=== PATIENT | female | born 1980 | race Caucasian/White ===

== ENCOUNTER 2017-12-26 09:45 | Emergency (ER) | payer MEDICAID, OTHER ==
[2017-12-26] MEDS ORDERED: RINGERS SOLUTION,LACTATED 1,000 ML IV ONE (10:13)
[2017-12-26] MEDS ORDERED: DIPHENHYDRAMINE HCL 50 MG/ML VIAL IV ONE (10:14)
[2017-12-26] MEDS ORDERED: METOCLOPRAMIDE HCL INJ/PF 10 MG/2 ML SDV IV ONE ×2 (10:14)
[2017-12-26] MEDS ORDERED: DEXAMETHASONE SOD PHOS INJ 10 MG/1 ML VIAL IV ONE (10:15)
--- NOTE | 2017-12-26 10:16 | ER Document Report ---
ED Medical Screen (RME) - General Chief Complaint: Headache Stated Complaint: DIZZINESS Time Seen by Provider: 12/26/17 10:13 Mode of Arrival: Ambulatory Information source: Patient Notes: This is a 37-year-old female with a history of migraines who is 18 weeks who presents to the emergency room with headache for the past 3 days. TRAVEL OUTSIDE OF THE [place] IN LAST 30 DAYS: No - Related Data Allergies/Adverse Reactions: cephalexin monohydrate [From Keflex] Allergy (Severe, Verified 12/26/17 09:49) analphylaxis Penicillins Allergy (Severe, Verified 12/26/17 09:49) Swelling, SOB, itching, body turns red Sulfa (Sulfonamide Antibiotics) Allergy (Mild, Verified 12/26/17 09:49) Hives Past Medical History - Social History Chew tobacco use (# tins/day): No Frequency of alcohol use: None Drug Abuse: None - Past Medical History Cardiac Medical History: Denies: Hx Coronary Artery Disease, Hx Heart Attack, Hx Hypertension Pulmonary Medical History: Reports: Hx Bronchitis, Hx Pneumonia - 2 yrs ago Denies: Hx Asthma, Hx COPD Neurological Medical History: Reports: Hx Migraine. Denies: Hx Cerebrovascular Accident, Hx Seizures Renal/ Medical History: Denies: Hx Peritoneal Dialysis GI Medical History: Musculoskeltal Medical History: Denies Hx Arthritis Infectious Medical History: Past Surgical History: Reports: Hx Cholecystectomy. Denies: Hx Pacemaker - Immunizations Immunizations up to date: Yes Hx Diphtheria, Pertussis, Tetanus Vaccination: Yes Physical Exam - Vital signs Vitals: Temp Pulse Resp BP Pulse Ox 98.7 F 88 16 130/82 H 98 12/26/17 09:54 12/26/17 09:54 12/26/17 09:54 12/26/17 09:54 12/26/17 09:54 Course - Vital Signs Vital signs: Temp Pulse Resp BP Pulse Ox 98.7 F 88 16 130/82 H 98 12/26/17 09:54 12/26/17 09:54 12/26/17 09:54 12/26/17 09:54 12/26/17 09:54 Doctor's Discharge - Discharge Referrals: NANNETTE GUSTAFSON PA-C [Primary Care Provider] - Follow up as needed
--- NOTE | 2017-12-26 11:16 | ER Document Report ---
ED Headache - General Chief Complaint: Headache Stated Complaint: DIZZINESS Time Seen by Provider: 12/26/17 10:13 Mode of Arrival: Ambulatory Notes: Patient is complaining of a migraine headache since Sunday. She has been diagnosed with migraine headaches and used to take Topamax, but she is now 18 weeks , G3, P1, A1, and that medication has been stopped. In place of it, her OB has been prescribing magnesium oxide which the patient does not think helps very much. This current headache is very similar to previous migraines that she has had before. She is nauseated but not vomiting. She is also gets diarrhea with her migraines and is having some with this headache. Has not had any fever. Her concern is that when she stands up she feels as if she might pass out, feeling very weak. PMH: PCOS, , NIDDM. TRAVEL OUTSIDE OF THE [place] IN LAST 30 DAYS: No - Related Data Allergies/Adverse Reactions: cephalexin monohydrate [From Keflex] Allergy (Severe, Verified 12/26/17 09:49) analphylaxis Penicillins Allergy (Severe, Verified 12/26/17 09:49) Swelling, SOB, itching, body turns red Sulfa (Sulfonamide Antibiotics) Allergy (Mild, Verified 12/26/17 09:49) Hives Past Medical History - General Information source: Patient - Social History Smoking Status: Never Smoker Chew tobacco use (# tins/day): No Frequency of alcohol use: None Drug Abuse: None Family History: Reviewed & Not Pertinent Patient has suicidal ideation: No Patient has homicidal ideation: No - Past Medical History Cardiac Medical History: Pulmonary Medical History: Reports: Hx Bronchitis, Hx Pneumonia - 2 yrs ago Neurological Medical History: Reports: Hx Migraine. Denies: Hx Cerebrovascular Accident, Hx Seizures Endocrine Medical History: Reports: Hx Diabetes Mellitus Type 2 GI Medical History: Musculoskeltal Medical History: Infectious Medical History: Past Surgical History: Reports: Hx Cholecystectomy - Immunizations Immunizations up to date: Yes Hx Diphtheria, Pertussis, Tetanus Vaccination: Yes Review of Systems - Review of Systems Notes: REVIEW OF SYSTEMS: CONSTITUTIONAL : Denies fever. Feeling weak and somewhat dizzy. EENT: Denies eye, ear, nose or mouth or throat pain or other symptoms. CARDIOVASCULAR: Denies chest pain. RESPIRATORY: Denies cough, chest congestion, or shortness of breath. GASTROINTESTINAL: Denies abdominal pain or nausea, vomiting, or diarrhea. GENITOURINARY: Denies difficulty or painful urinating, urinary frequency, blood in urine. MUSCULOSKELETAL: Denies back or neck pain. Denies joint pain or swelling. SKIN: Denies rash or skin lesions. NEUROLOGICAL: Denies LOC or altered mental status. Feeling lightheaded and dizzy when she stands up. Denies sensory loss or motor deficits. ALL OTHER SYSTEMS REVIEWED AND NEGATIVE. Physical Exam - Vital signs Vitals: Temp Pulse Resp BP Pulse Ox 98.7 F 88 16 130/82 H 98 12/26/17 09:54 12/26/17 09:54 12/26/17 09:54 12/26/17 09:54 12/26/17 09:54 Interpretation: Normal - Notes Notes: PHYSICAL EXAMINATION: GENERAL: Well-appearing, in no acute distress. IV fluid running. Vital signs were all essentially normal. Blood pressure 130/82 in triage. HEAD: Atraumatic, normocephalic. EYES: Pupils equal round and reactive to light, extraocular movements intact. ENT: oropharynx clear without exudates. Moist mucous membranes. NECK: Normal range of motion, supple. LUNGS: Breath sounds clear and equal bilaterally. HEART: Regular rate and rhythm without murmurs. ABDOMEN: Soft, nontender. No guarding or rebound. No masses. BACK: No tenderness throughout entire back. EXTREMITIES: Normal range of motion without pain. NEUROLOGICAL: Normal speech, normal gait. Normal sensory, motor, and reflex exams. Awake, alert, and oriented x3. PSYCH: Normal mood, normal affect. SKIN: Warm, dry, no rashes. Course - Re-evaluation Re-evalutation: 12/26/17 11:18 Patient says that she is already feeling some relief from her headache. Plan is to give the patient a liter of saline, check her urine, discharge her with Reglan for home use. 12/26/17 12:27 Patient says she is feeling much better. Says she is ready to go home. Urinalysis has moderate leukocyte esterase along with 12 WBCs and trace bacteria 4 clean-catch specimen. There are 5 squamous epithelial cells as well. I think this is all contamination from clean-catch specimen and I have ordered a urine culture and I will follow it to check and see if the patient has a UTI on culture. - Vital Signs Vital signs: Temp Pulse Resp BP Pulse Ox 98.1 F 100 16 125/74 96 12/26/17 12:27 12/26/17 12:27 12/26/17 09:54 12/26/17 12:27 12/26/17 12:27 - Laboratory Laboratory results interpreted by me: 12/26/17 10:00 Urine Glucose (UA) 150 H Ur Leukocyte Esterase MODERATE H Discharge - Discharge Clinical Impression: , Migraine headache Condition: Stable Disposition: HOME, SELF-CARE Additional Instructions: Migraine Headache The physician feels that your symptoms are due to a migraine attack. Migraines are caused by changes in the blood vessels of the head. Arteries go into spasm, often causing warning symptoms that a headache may begin soon. As the spasm goes away, the vessels dilate and throb, causing the pounding pain of a migraine headache. Migraines often cause nausea and vomiting. The treatment of headaches varies with severity and cause of pain. Not all headaches need pain shots -- in fact, there is evidence that using narcotics for headaches may make them worse in the long run. The physician will determine the therapy that's in your best interest for this particular headache. Medications are available that may prevent migraines, or stop them as they first occur. If one medication is not helpful, try another. If migraines are frequent, be patient -- follow the doctor's recommendations. Call the physician if you are worsening, or if new symptoms arise. REGLAN (METOCLOPRAMIDE): Reglan has been prescribed. This medicine affects the stomach and intestines. It can be used to treat nausea and vomiting, to prevent reflux of stomach acid up into the esophagus, or to increase the contractions of the stomach and intestines. It is often prescribed for esophagitis, and for paralysis of the stomach in diabetics. Reglan can cause either mild restlessness or drowsiness. You should contact the doctor at once if you become extremely restless, anxious, or cannot sleep, or if you develop uncontrollable motions of the lips, tongue, or jaw. Do not take alcohol with this medicine. Do not drive or operate machinery until you have been taking this medicine long enough to know how it affects you. Call the doctor if you develop abdominal pains, lightheadedness, black stool, or blood in the stool or vomitus. USE OF DIPHENHYDRAMINE: Diphenhydramine (Benadryl) is an antihistamine and has been recommended to help treat your headache and to prevent side effects of other medications used to treat headaches. The medication can be repeated four times daily. Age Elixir (12.5 mg/tsp) 25 mg pill adult 1-2 tabs Antihistamines may cause drowsiness, especially with the first dose. Do not operate machinery or drive while under the effects of the medication. Do not combine the medication with alcohol, or with any other medication without talking to your doctor. FOLLOW-UP CARE: If you have been referred to a physician for follow-up care, call the physician s office for an appointment as you were instructed or within the next two days. If you experience worsening or a significant change in your symptoms, notify the physician immediately or return to the Emergency Department at any time for re-evaluation. Prescriptions: Metoclopramide HCl [Reglan 10 mg Tablet] 1 - 2 tab PO ASDIR PRN #30 tablet PRN Reason: Forms: Parent Work Note Referrals: NANNETTE GUSTAFSON PA-C [NO LOCAL MD] - Follow up as needed
[2017-12-26 11:31] LABS: APPEARANCE,URINE SLIGHTLY-CLOUDY; BILIRUBIN,URINE NEGATIVE (NEGATIVE); CALCIUM OXALATE CRYSTALS,URINE TOO NUMEROUS TO CNT /HPF; COLOR,URINE YELLOW; GLUCOSE, URINE 150 mg/dL (NEGATIVE); KETONES,URINE NEGATIVE (NEGATIVE); LEUKOCYTE ESTERASE,URINE MODERATE (NEGATIVE); NITRITE,URINE NEGATIVE (NEGATIVE); PROTEIN,URINE NEGATIVE (NEGATIVE); URINE SPECIFIC GRAVITY 1.026; UROBILINOGEN,URINE NEGATIVE mg/dL (<2.0)
[2017-12-26 12:34] VITALS: BP 125/74
== END 2017-12-26 13:05 | disposition home or self-care (01) ==
LOC: ER 09:45
DX: O26.92 Pregnancy related conditions, unspecified, second trimester (principal); G43.909 Migraine, unspecified, not intractable, without status migrainosus; R42 Dizziness and giddiness; O24.112 Pre-existing type 2 diabetes mellitus, in pregnancy, second trimester; Z3A.18 18 weeks gestation of pregnancy; Z88.0 Allergy status to penicillin; Z88.2 Allergy status to sulfonamides; Z90.49 Acquired absence of other specified parts of digestive tract
CPT/HCPCS: 99283; 96361; 96374; 96375; 87086; 81001; J1200; J2765; J7120; J1100

== ENCOUNTER 2018-02-28 11:44 | Outpatient (CLI) | payer OTHER ==
[2018-02-28 13:42] LABS: URINE AMPHETAMINES SCREEN NEGATIVE; URINE BARBITURATES SCREEN NEGATIVE; URINE BENZODIAZEPINES SCREEN NEGATIVE; URINE COCAINE SCREEN NEGATIVE; URINE MARIJUANA (THC) SCREEN NEGATIVE; URINE METHADONE SCREEN NEGATIVE; URINE PHENCYCLIDINE SCREEN NEGATIVE
[2018-02-28 13:57] LABS: APPEARANCE,URINE SLIGHTLY-CLOUDY; BILIRUBIN,URINE NEGATIVE (NEGATIVE); COLOR,URINE YELLOW; GLUCOSE, URINE >=500 mg/dL (NEGATIVE); KETONES,URINE 20 mg/dL (NEGATIVE); LEUKOCYTE ESTERASE,URINE MODERATE (NEGATIVE); NITRITE,URINE NEGATIVE (NEGATIVE); PROTEIN,URINE NEGATIVE (NEGATIVE); URINE SPECIFIC GRAVITY 1.017; UROBILINOGEN,URINE NEGATIVE mg/dL (<2.0)
--- NOTE | 2018-02-28 14:22 | RADIOLOGY REPORT (SQ) ---
EXAM DESCRIPTION: U/S OB LIMITED COMPLETED DATE/TIME: 02/28/2018 2:05 pm REASON FOR STUDY: cervical length 27.2 vaginal bleeding COMPARISON: None. TECHNIQUE: Limited transabdominal grayscale ultrasound for evaluation of specific requested obstetri ty parameters. LIMITATIONS: None. FINDINGS: CERVICAL LENGTH: 4.8 cm Closed. DINA: Largest pocket 4.1 cm . FHR: 140 beats per minute. PRESENTATION: Breech. OTHER: No other significant findings. IMPRESSION: LIMITED OBSTETRICAL ULTRASOUND WITH MEASURED PARAMETERS DELINEATED ABOVE. Trimester of : Second trimester - 13 weeks 1 day to 27 weeks 6 days. TECHNICAL DOCUMENTATION: JOB ID: [id number] [employer]- All Rights Reserved Reading location - IP/workstation name: [email or web address]
== END 2018-02-28 14:11 | disposition home or self-care (01) ==
LOC: LC 11:44
PROVIDERS: ATTEND Student in an Organized Health Care Education/Training Program
PROC: 4A1HXCZ Monitoring of Products of Conception, Cardiac Rate, External Approach (ICD-10-PCS; principal; 2018-02-28)
DX: O47.02 False labor before 37 completed weeks of gestation, second trimester (principal); Z3A.27 27 weeks gestation of pregnancy
CPT/HCPCS: 76815; 80307; 81001

== ENCOUNTER → 2018-04-25 | Outpatient (CLI) | payer OTHER ==
--- NOTE | 2018-04-25 15:07 | Non Stress Test Report ---
Non Stress Test Datetime Report Generated by CPN: 04/25/2018 15:07 DEMOGRAPHIC EGA NST: 35.2 EGA NST: 33.2 INDICATION Indication for Study: Diabetes Mellitus Indication for Study: Ordered by Provider Indication for Study: Ordered by Provider VITAL SIGNS Temperature - NST: 98.1 MONITORING Monitor Explained: Monitor Explained; Test Explained; Patient Verbalized Understanding Monitor Explained: Monitor Explained; Test Explained; Patient Verbalized Understanding Monitor Explained: Monitor Explained; Test Explained; Patient Verbalized Understanding Time on Monitor: 04/25/2018 14:40 Time on Monitor: 04/11/2018 14:29 Time off Monitor: 04/25/2018 15:05 Time off Monitor: 04/11/2018 15:01 NST Duration: 25 NST Duration: 32 NST INTERVENTIONS NST Interventions: PO Hydration; Reposition Patient NST Interventions: None NST Interventions: PO Hydration; Reposition Patient Physician Notified NST: Dr Palomo BABY A: [id number] BABY A Movement : Present Movement : Present Contraction Frequency : denies Contraction Frequency : none FHR Baseline : 135 FHR Baseline : 145 Accelerations : 15X15 Accelerations : 15X15 Decelerations : None Decelerations : None Variability : Moderate 6-25bpm Variability : Minimal - Undetectable to <=5bpm NST Review: Meets Criteria for Reactive NST NST Review: Meets Criteria for Reactive NST NST Review and Verified By : Josh Wang RN NST Review and Verified By : Deb Sellers RNC NST Results: Reactive NST Results: Reactive NST REPORT Report Trigger: Send Report
== END ==
LOC: LC 14:28
PROVIDERS: ATTEND Obstetrics & Gynecology Gynecology
PROC: 4A1HXCZ Monitoring of Products of Conception, Cardiac Rate, External Approach (ICD-10-PCS; principal; 2018-04-25)
DX: O24.913 Unspecified diabetes mellitus in pregnancy, third trimester (principal); O09.523 Supervision of elderly multigravida, third trimester; Z3A.35 35 weeks gestation of pregnancy
CPT/HCPCS: 59025

== ENCOUNTER 2018-05-03 23:24 | Inpatient (IN) | payer OTHER ==
[2018-05-03] MEDS ORDERED: RINGERS SOLUTION,LACTATED 1,000 ML IV PRN (23:31)
[2018-05-03] MEDS ORDERED: RINGERS SOLUTION,LACTATED 1,000 ML IV ONE (23:31)
[2018-05-03] MEDS ORDERED: CLINDAMYCIN 900 MG/D5W RTU 900 MG/50 ML RTUPB IV ONE ×2 (23:45→23:58)
--- NOTE | 2018-05-03 23:46 | Admission Physical ---
Datetime Report Generated by CPN: 05/03/2018 23:46 CURRENT ADMISSION Chief Complaint: Uterine Contractions; Suspected Ruptured Membranes Indication for Induction: Not Applicable Admit Impression : , Intrauterine ; Active Labor; Ruptured Membranes; Repeat Section Admit Plan: Admit to Unit; Initiate Section Protocol ALLERGIES Medication Allergies: Yes Medication Allergies: cephalexin monohydrate/SV/analphylaxis (04/25/2018); Penicillins/SV/Swelling, SOB, (04/25/2018); Sulfa (Sulfonamide Antibiotics)/MT/Hives (04/25/2018) Latex: Latex Allergies Food Allergies: N/A Environmental Allergies: Seasonal OBSTETRICAL HISTORY EDC: 05/28/2018 00:00 : 3 Para: 1 Term: 1 : 0 SAB: 1 IAB: 0 Ectopic: 0 Livin Cesareans: 1 VBACs: 0 Multiple Births: 0 Gestational Diabetes: No Rh Sensitization: No Incompetent Cervix: No KARO: No Infertility: Yes ART Treatment: Yes Uterine Anomaly: No IUGR: No Hx Previous C/S: Yes Macrosomia: No Hx Loss/Stillborn: No PIH: No Hx : No Placenta Previa/Abruption: No Depression/PP Depression: No PTL/PROM: No Post Hemorrhage: Yes Current Procedures: Ultrasound; NST Obstetrical History Comments: G2- Seen by Dr. Montenegro for assisted reproductive tx, C/S 2014, pt states that she lost a lot of blood during C/S. SEE RECORDS Alcohol: No Marijuana : No Cocaine: No Other Illicit Drugs: No Cigarettes: Never Smoker. [id number] MEDICAL HISTORY Diabetes: Yes Diabetes Type: Type II - NIDDM Blood Transfusion: No Pulmonary Disease (Asthma, TB): No Breast Disease: No Hypertension: No Business Supervisor Surgery: Yes Heart Disease: No Hosp/Surgery: Yes Autoimmune Disorder: No Anesthetic Complications: No Kidney Disease: No Abnormal Pap Smear: No Neuro/Epilepsy: No Psychiatric Disorders: No Other Medical Diseases: No Hepatitis/Liver Disease: No Significant Family History: No Varicosities/Phlebitis: No Trauma/Violence : No Thyroid Dysfunction: No Medical History Comments: 4-5 D_C, C/S 2014. Dr. Montenegor in [place] for assisted reproductive treatment 2012. INFECTIOUS HISTORY Gonorrhea: No Genital Herpes: No Chlamydia: No Tuberculosis: No Syphilis: No Hepatitis: No HIV/AIDS Exposure: No Rash or Viral Illness: No HPV: No PHYSICAL EXAM General: Normal HEENT: Normal Neurologic: Normal Thyroid: Deferred Heart: Normal Lungs: Normal Breast: Deferred Back: Normal Abdomen: Normal Genitourinary Exam: Normal Extremities: Normal DTRs: Normal Pelvic Type: Adequate Vital Signs: Reviewed VAGINAL EXAM Dilatation: 1 Effacement: 60 Station: -3 Contraction Comments: q 2-3 MEMBRANES Membranes: Ruptured Amniotic Fluid Color: Clear FETUS A EGA: 36.3 Monitoring: External US FHR- Baseline: 155 Variability: Moderate 6-25bpm Accelerations: 15X15 Decelerations: None Presentation: Vertex Admit Comment: 38yo at 36+3ega presents with grossly ruptured membranes with copious fluid noted. Clear fluid and ROM noted at approx 2300. Pt reports that ctx began shortly after ROM. H/o section for distress per patient. Type II DM with Hb A1c at 9 early preg. Declines insulin for management - on Glyburide 10mg daily and metformin 500mg QHS. Undesired future fertility and desires BTL. Poor dentition. GBS unknown. CHTN/AMA. Admit to L_D for repeat section with BTL. PLANS FOR LABOR AND DELIVERY Labor and Delivery: None Pain Management: Spinal Other Pain Management Plans: Prior C/S Feeding Preference: Formula Benefit of Breast Feed Discussed: Yes Circumcision: Yes INFORMED CONSENT Informed Consent Obtained: Section Delivery; Sterilization; Risks, Benefits and Alternatives Discussed Signature: with User ID: [email or web address]
[2018-05-03 23:53] LABS: ABSOLUTE EOSINOPHILS # (AUTO) 0.2 10^3/uL (0.0-0.6); ABSOLUTE MONOCYTES (AUTO) 0.7 10^3/uL (0.1-1.4); ABSOLUTE NEUT (AUTO) 5.1 10^3/uL (1.7-8.2); BASOPHILS % (AUTO) 0.5 % (0-2); HEMOGLOBIN 11.3 g/dL (12.0-15.5); LYMPHOCYTES % (AUTO) 24.9 % (13-45); MEAN CORPUSCULAR HEMOGLOBIN 25.9 pg (27.0-33.4); MEAN CORPUSCULAR HGB CONC 33.3 g/dL (32.0-36.0); MEAN CORPUSCULAR VOLUME 78 fl (80-97); MONOCYTES % (AUTO) 8.8 % (3-13); PLATELET COUNT 345 10^3/uL (150-450); RED BLOOD COUNT 4.37 10^6/uL (3.72-5.28); RED CELL DISTRIBUTION WIDTH 14.7 % (11.5-14.0); SEGMENTED NEUTROPHILS % (AUTO) 63.8 % (42-78); TOTAL CELLS COUNTED % (AUTO) 100 %; WHITE BLOOD COUNT 8.1 10^3/uL (4.0-10.5)
[2018-05-03] MEDS ORDERED: CITRIC ACID/SODIUM CITRATE ORAL SOLN 15 ML UDCUP ONE (23:58)
[2018-05-03] MEDS ORDERED: OXYTOCIN 10 UNIT/ML VIAL ONE (23:59)
[2018-05-03] MEDS ORDERED: MISOPROSTOL 0.2 MG TABLET ONE (23:59)
[2018-05-04] MEDS ORDERED: METHYLERGONOVINE MALEATE INJ/PF 0.2 MG/1 ML AMPULE ONE
[2018-05-04] MEDS ORDERED: OXYTOCIN/NORMAL SALINE 20 UNIT/1,000 ML RTUINJ ONE
[2018-05-04] MEDS ORDERED: ONDANSETRON HCL INJ/PF 4 MG/2 ML SDV ONE (00:29)
[2018-05-04] MEDS ORDERED: EPHEDRINE SULFATE INJ 50 MG/1 ML AMPULE ONE (00:29)
[2018-05-04] MEDS ORDERED: BUPIVACAINE HCL/DEX-WATER/PF 15 MG/2 ML AMPULE ONE (00:29)
[2018-05-04] MEDS ORDERED: SIMETHICONE 80 MG TAB.CHEW PO PRN (00:30)
[2018-05-04] MEDS ORDERED: OXYTOCIN 10 UNIT/ML VIAL ONE ×2 (00:30→00:59)
[2018-05-04] MEDS ORDERED: MIDAZOLAM 2 MG/2 ML INJ ONE (00:30)
[2018-05-04] MEDS ORDERED: OXYCODONE-ACETAMINOPHEN 5-325 MG TABLET PO PRN (00:30)
[2018-05-04] MEDS ORDERED: PROMETHAZINE HCL INJ 25 MG/1 ML VIAL IV PRN (00:30)
[2018-05-04] MEDS ORDERED: OXYTOCIN/NORMAL SALINE 20 UNIT/1,000 ML RTUINJ IV PRN (00:30)
[2018-05-04] MEDS ORDERED: DIPH/PERTUSS(ACELL)/TETANUS VAC/PF 0.5 ML SYR (>=10YO) IM PRN (00:30)
[2018-05-04] MEDS ORDERED: FENTANYL CITRATE INJ/PF 100 MCG/2 ML AMPUL ONE ×2 (00:30→03:46)
[2018-05-04] MEDS ORDERED: ACETAMINOPHEN 1,000 MG/100 ML RTUPB IV PRN (00:30)
[2018-05-04] MEDS ORDERED: ACETAMINOPHEN 325 MG TABLET PO PRN (00:30)
[2018-05-04] MEDS ORDERED: MEASLES,MUMPS&RUBELLA VACC/PF 0.5 ML VIAL SUBCUT PRN (00:30)
--- NOTE | 2018-05-04 00:30 | Brief Operative Note ---
BRIEF OPERATIVE REPORT DATE OF SURGERY: 05/04/18 TIME OF SURGERY: 00:30 PREOPERATIVE DIAGNOSIS: AMA, possible Cholestasis of , PPROM, H/o section, Undesired fertility, CHTN, Type II DM, keloid scar POSTOPERATIVE DIAGNOSIS: ROSHAN - delivered SURGEON: CARLOS MEJIA FINDINGS: Filschie clips x 2 placed on bilateral fallopian tubes. Normal uterus , normal bilateral tubes/ovaries. VMI delivered at 0112. Weight 3613g, Apgars 5/7/8. IVF 1700ml, UOP 200ml COMPLICATIONS: none ESTIMATED BLOOD LOSS: 695ml QBL TISSUE REMOVED OR ALTERED: placenta and cord not sent to pathology TECHNICAL PROCEDURE: Repeat section, BTL, Scar revision
[2018-05-04] MEDS ORDERED: KETOROLAC TROMETHAMINE INJ/PF 30 MG/1 ML SDV IV ONE (01:00)
--- NOTE | 2018-05-04 02:57 | Warning Signs in Babies ---
VOD Warning Signs Datetime Report Generated by [facility]: 05/04/2018 02:56 VOD#608 -Warning Signs in Babies: Needs to be viewed. (02/28/2018 11:48:Sharon Bills RN)
[2018-05-04] MEDS ORDERED: KETOROLAC TROMETHAMINE INJ/PF 30 MG/1 ML SDV ONE (03:28)
[2018-05-04 04:00] LABS: URINE AMPHETAMINES SCREEN NEGATIVE; URINE BARBITURATES SCREEN NEGATIVE; URINE BENZODIAZEPINES SCREEN NEGATIVE; URINE COCAINE SCREEN NEGATIVE; URINE MARIJUANA (THC) SCREEN NEGATIVE; URINE METHADONE SCREEN NEGATIVE; URINE PHENCYCLIDINE SCREEN NEGATIVE
[2018-05-04] MEDS ORDERED: BUPROPION HCL 100 MG TABLET PO ONE (04:38)
--- NOTE | 2018-05-04 04:45 | Operative Report ---
Operative Report DATE OF SURGERY: 05/04/18 PREOPERATIVE DIAGNOSIS: AMA, possible Cholestasis of , PPROM, H/o section, Undesired fertility, CHTN, Type II DM, keloid scar POSTOPERATIVE DIAGNOSIS: ROSHAN - delivered OPERATION: Repeat section, BTL, Scar revision SURGEON: CARLOS MEJIA ANESTHESIA: Spinal TISSUE REMOVED OR ALTERED: placenta and cord not sent to pathology COMPLICATIONS: None ESTIMATED BLOOD LOSS: 695ml QBL INTRAOPERATIVE FINDINGS: Filschie clips x 2 placed on bilateral fallopian tubes. Normal uterus, normal bilateral tubes/ovaries. VMI delivered at 0112. Weight 3613g, Apgars 5/7/8. IVF 1700ml, UOP 200ml PROCEDURE: Anesthesia provider: [Be Ramirez CRNA, MD] Urine output: [200ml] IV fluids: [1700ml] Indications: [38yo at 36+3ega presents for PPROM and early active labor with a history of a prior section. She desires repeat section. She has completed childbearing and desires tubal sterilization. The risks, benefits, alternatives were reviewed and she desiers to proceed with planned procedure.] Procedure: The patient was taken to the operating room where spinal anesthesia was obtained and found to be adequate. She was then prepped and draped in the normal sterile fashion and placed in the dorsal supine position with a leftward tilt. The prior Pfannenstiel skin incision was then excised and this incision carried through to the underlying layers of the fascia with the scalpel. The fascia was incised in the midline and the incision extended laterally with the Godwin scissors. The superior aspect of the fascial incision was then grasped with Sammy clamps elevated and the underlying rectus muscles dissected off [ bluntly]. Attention was then turned to the inferior aspect of the fascial incision which in a similar fashion was grasped, tented up with Sammy clamps, and the rectus muscles dissected off [bluntly]. The rectus muscles were then in the midline and the peritoneum at the amount identified and entered [bluntly]. The peritoneal incision was then extended superiorly and inferiorly with good visualization of the bladder. The bladder blade was inserted and the vesicouterine peritoneum identified grasped with Montenegrin pickups and entered sharply with the Metzenbaum scissors. This incision was then extended laterally with the Metzenbaum scissors and a bladder flap created digitally. The bladder blade was then reinserted and the lower uterine segment incised in a transverse fashion with the scalpel. The uterine incision was then extended bluntly. The bladder blade was removed and the infant's head was delivered from cephalic presentation atraumatically. The nose and mouth were suctioned and the cord doubly clamped and cut. And the was handed off to waiting pediatricians. The placenta was then delivered spontaneously and the uterus exteriorized and cleared of all clots and debris. The uterine incision was then repaired with 1- 0 Vicryl in a running locked fashion. A second layer of the same suture was used to obtain hemostasis via imbrication of the initial layer. The bladder flap was then repaired with 3-0 chromic in a running fashion. The uterus was returned to the patient's abdomen and Interceed was placed overlying the uterine incision to prevent adhesions. The gutters were cleared of all clots and debris. All operative sites were noted to be hemostatic surgicel was placed for additional hemostasis. The fascia was reapproximated with 0 Vicryl in a running fashion from each lateral edge to the midline. The skin was closed with 3-0 Monocryl in a running subcuticular fashion with overlying Dermabond for additional dressing as well as wound closure. The patient tolerated the procedure well. Sponge lap needle and instrument counts are correct times 2. Clindamycin 900mg were given prior to skin incision. The patient was taken to the recovery area awake and in stable condition.
[2018-05-04] MEDS: OXYCODONE-ACETAMINOPHEN 5-325 MG TABLET PO PRN ×4 (05:11→22:46)
--- NOTE | 2018-05-04 05:19 | Delivery Summary ---
Del Sum A-C Datetime Report Generated by CPN: 05/04/2018 05:18 DELIVERY PERSONNEL DELIVERY PERSONNEL: [id number] Delivery Doctor:: Vesna Lynn MD Anesthesiologist:: Selena Lr MD HOUSE NURSE:: Enzo Ashley CRNA Labor and Delivery Nurse:: Jodi Whelan RN Quality Rn:: chaparrita staples rn Neonatal Nurse Practitioner:: BING Lubin Nursery Nurse:: Terra England RN Medical Lab Scientist/LABORATORY SUPERVISOR: [facility] Medical Lab Scientist/LABORATORY SUPERVISOR: kerwin medellin, st MATERNAL INFORMATION Delivery Anesthesia: Spinal Medications After Delivery: Pitocin Drip 20 Units/1000ml NSS Maternal Complications: Premature Rupture of Membranes; Other Complication Details: diabetes LABOR SUMMARY EDC: 05/28/2018 00:00 No. Babies in Womb: 1 Attempted: No Labor Anesthesia: None LABOR INFORMATION Reason for Induction: Not Applicable Onset of Labor: 05/03/2018 23:00 Oxytocin: N/A Group B Beta Strep: unknown Antibiotics # of Doses: 1 Antibiotics Time of Last Dose: 0017 Name of Antibiotic Given: Clindamycin Steroids Given: None Reason Steroids Not Administered: Not Applicable MEMBRANES Membranes Rupture Method: Spontaneous Rupture of Membranes: 05/03/2018 22:45 Length of Rupture (hr): 2.45 Amniotic Fluid Color: Clear Amniotic Fluid Amount: Moderate Amniotic Fluid Odor: Normal STAGES OF LABOR Stage 3 hr: 0 Stage 3 min: 1 Total Time in Labor hr: 2 Total Time in Labor min: 13 VAGINAL DELIVERY Episiotomy: None Laceration #1: None Laceration Extension #1: N/A Laceration Repair: Not Applicable Sponge Count Correct: N/A CSECTION DELIVERY Primary Indication: Repeat Elective CSection Urgency: Non-Scheduled CSection Incidence: Repeat Labor: No Labor Elective: Nonelective CSection Incision: Lower Uterine Transverse BABY A INFORMATION Infant Delivery Date/Time: 05/04/2018 01:12 Method of Delivery: Born in Route : No : N/A Forceps: N/A Vacuum Extraction: N/A Shoulder Dystocia : No PRESENTATION/POSITION BABY A Presentation: Cephalic Cephalic Presentation: Vertex Vertex Position: Right Occipital Anterior Breech Presentation: N/A PLACENTA INFORMATION BABY A Placenta Delivery Time : 05/04/2018 01:13 Placenta Method of Delivery: Manual Removal Placenta Status: Delivered SCORES BABY A Resuscitation Effort 1 min: Tactile Stimulation INFORMATION BABY A Gestational Age at Delivery: 36.4 Gestational Status: Late - 34- 36.6 Weeks Infant Outcome : Liveborn Infant Condition : Stable Sex: Male IDENTIFICATION BABY A Verification Date/Time: 05/04/2018 01:15 ID Band Number: [id number] Mother's Name Verified: Yes Infant RN Verifying Infant: zari staples Additional Verifying Personnel: zari normdon WEIGHT/LENGTH BABY A Birthweight (gm): 3613 Weight (lb): 7 Weight (oz): 15 Infant Length (in): 20.00 Infant Length (cm): 50.80 CORD INFORMATION BABY A No. Cord Vessels: 3 Nuchal Cord : Around Neck x1, Loose Cord Blood Taken: Yes-For Eval (Mom's Blood Type - or O+) Suction: Mouth; Nose ASSESSMENT BABY A Complications: None Skin to Skin: No Exhibition Carver/ALS Called : No Infant Care By: OIL LEASE OPERATOR Carbone and RN [place] Transferred To: NICU BABY B INFORMATION : N/A
[2018-05-04] MEDS ORDERED: KETOROLAC TROMETHAMINE INJ/PF 30 MG/1 ML SDV IV SCH (06:00)
[2018-05-04] MEDS ORDERED: CLINDAMYCIN 900 MG/D5W RTU 900 MG/50 ML RTUPB IV SCH (06:00)
[2018-05-04] MEDS: HYDROMORPHONE HCL INJ/PF 2 MG/ML AMPULE IV PRN ×2 (06:22→23:40)
[2018-05-04 06:44] LABS: HEMATOCRIT 33.3 % (36.0-47.0); MEAN CORPUSCULAR HEMOGLOBIN 25.6 pg (27.0-33.4); MEAN CORPUSCULAR HGB CONC 33.1 g/dL (32.0-36.0); MEAN CORPUSCULAR VOLUME 77 fl (80-97); PLATELET COUNT 304 10^3/uL (150-450); RED CELL DISTRIBUTION WIDTH 14.5 % (11.5-14.0); WHITE BLOOD COUNT 15.3 10^3/uL (4.0-10.5)
[2018-05-04 06:55] LABS: ALANINE AMINOTRANSFERASE 23 U/L (9-52); ALBUMIN 2.6 g/dL (3.5-5.0); ALKALINE PHOSPHATASE 130 U/L (38-126); ANION GAP 6 (5-19); ASPARTATE AMINO TRANSFERASE 14 U/L (14-36); BILIRUBIN,TOTAL 0.3 mg/dL (0.2-1.3); BLOOD UREA NITROGEN 6 mg/dL (7-20); CALCIUM 8.8 mg/dL (8.4-10.2); CARBON DIOXIDE 17 mmol/L (22-30); CHLORIDE 113 mmol/L (98-107); GLUCOSE 142 mg/dL (75-110); POTASSIUM 4.2 mmol/L (3.6-5.0); SODIUM 136.4 mmol/L (137-145); TOTAL PROTEIN 5.3 g/dL (6.3-8.2)
[2018-05-04] MEDS: PRENATAL VITAMIN W DHA CAPSULE PO SCH (09:55)
[2018-05-04] MEDS: DOCUSATE SODIUM 100 MG CAPSULE PO SCH ×2 (09:55→17:55)
--- NOTE | 2018-05-04 10:16 | PDOC PROGRESS REPORT ---
Subjective-OB Progress Note for:: 05/04/18 Subjective: Post Op Day 0 repeat c-seciton due to SROM at 36 wks, Hx of Type 2 DM with poor control. Pt doing well, no complaints, O+, Rubella NI Physical Exam (OB) Vital Signs: Temp Pulse Resp BP Pulse Ox 98.0 F 78 18 113/74 100 05/04/18 08:11 05/04/18 08:11 05/04/18 08:11 05/04/18 08:11 05/04/18 08:11 Intake & Output 05/03/18 05/04/18 05/05/18 06:59 06:59 06:59 Output Total 900 Balance -900 Weight 82.6 kg - General General Appearance: Appears well, Alert - Incision: Well Approximated Closure Type: Steri-Strips - Lochia Lochia Amount: Scant < 10 ml Lochia Color: Rubra/Red - Abdomen Description: Soft, Flat Hernia Present: No Fundal Description: Firm, Midline Fundal Height: u/u - u/2 - HEENT Head: Normocephalic - Respiratory Respiratory Status: No respiratory distress Chest Status: Nontender Breath sounds: Clear Chest Palpation: Normal - Cardiovascular Rhythm: Regular Heart Sounds: Normal auscultation - Abdominal Inspection: Normal Distension: No distension Tenderness: Nontender - Genitourinary Genitourinary Note: blanca cath in place, clear demi urine - Extremities Upper extremity: Normal inspection Lower extremities: Normal inspection - Neurological Cognition: Normal Orientation: AAOx4 - Psychological Associated symptoms: Normal affect, Normal mood - Skin Skin Temperature: Warm Skin Moisture: Dry Objective-Diagnostic Laboratory: 05/04/18 06:33 05/04/18 06:33 05/03/18 05/03/18 05/04/18 23:42 23:42 06:33 WBC 8.1 15.3 H RBC 4.37 4.30 Hgb 11.3 L 11.0 L Hct 34.0 L 33.3 L MCV 78 L 77 L MCH 25.9 L 25.6 L MCHC 33.3 33.1 RDW 14.7 H 14.5 H Plt Count 345 304 Seg Neutrophils % 63.8 Lymphocytes % 24.9 Monocytes % 8.8 Eosinophils % 2.0 Basophils % 0.5 Absolute Neutrophils 5.1 Absolute Lymphocytes 2.0 Absolute Monocytes 0.7 Absolute Eosinophils 0.2 Absolute Basophils 0.0 Sodium Potassium Chloride Carbon Dioxide Anion Gap BUN Creatinine Est GFR ( Amer) Est GFR (Non-Af Amer) Glucose Calcium Total Bilirubin AST ALT Alkaline Phosphatase Total Protein Albumin Blood Type O POSITIVE Antibody Screen NEGATIVE 05/04/18 06:33 WBC RBC Hgb Hct MCV MCH MCHC RDW Plt Count Seg Neutrophils % Lymphocytes % Monocytes % Eosinophils % Basophils % Absolute Neutrophils Absolute Lymphocytes Absolute Monocytes Absolute Eosinophils Absolute Basophils Sodium 136.4 L Potassium 4.2 Chloride 113 H Carbon Dioxide 17 L Anion Gap 6 BUN 6 L Creatinine 0.38 L Est GFR ( Amer) > 60 Est GFR (Non-Af Amer) > 60 Glucose 142 H Calcium 8.8 Total Bilirubin 0.3 AST 14 ALT 23 Alkaline Phosphatase 130 H Total Protein 5.3 L Albumin 2.6 L Blood Type Antibody Screen Assessment and Plan(PN) - Assessment and Plan (1) Advanced maternal age (AMA) in Is this a current diagnosis for this admission?: Yes (3) History of delivery Is this a current diagnosis for this admission?: Yes (4) premature rupture of membranes Qualifiers: PROM onset of labor timing: onset of labor within 24 hours of rupture Qualified Code(s): O42.019 - premature rupture of membranes, onset of labor within 24 hours of rupture, unspecified trimester Is this a current diagnosis for this admission?: Yes (5) S/P repeat low transverse Is this a current diagnosis for this admission?: Yes (6) Sterilization Is this a current diagnosis for this admission?: Yes (7) Type 2 diabetes mellitus affecting in third trimester, antepartum Is this a current diagnosis for this admission?: Yes - Time Spent with Patient Time with patient: Less than 15 minutes Medications reviewed and adjusted accordingly: Yes - Disposition Anticipated Discharge: Home Within: within 48 hours
[2018-05-04] MEDS: KETOROLAC TROMETHAMINE INJ/PF 30 MG/1 ML SDV IV SCH ×2 (14:16→23:35)
[2018-05-04] MEDS: IBUPROFEN 800 MG TABLET PO SCH ×3 (14:17→23:39)
[2018-05-05] MEDS: IBUPROFEN 800 MG TABLET PO SCH ×3 (05:45→17:07)
--- NOTE | 2018-05-05 10:07 | PDOC PROGRESS REPORT ---
Subjective-OB Progress Note for:: 05/05/18 Subjective: Post Op Day #1,, Rpt c-seciton with BTL, Type 2 DM and CHTN, SROM at 36 wks, Baby in the NICU, Physical Exam (OB) Vital Signs: Temp Pulse Resp BP Pulse Ox 98.0 F 87 18 113/72 98 05/05/18 07:38 05/05/18 07:38 05/05/18 07:38 05/05/18 07:38 05/05/18 07:38 Intake & Output 05/04/18 05/05/18 05/06/18 06:59 06:59 06:59 Output Total 900 450 Balance -900 -450 Weight 82.6 kg - General General Appearance: Appears well, Alert In distress: None - Dressing Removed: No Incision: Well Approximated Closure Type: Steri-Strips - Bilateral Tubal Ligation Dressing Removed: No - Lochia Lochia Amount: Scant < 10 ml Lochia Color: Rubra/Red - Abdomen Description: Tender, Soft Hernia Present: No Fundal Description: Firm, Midline Fundal Height: u/u - u/2 - Respiratory Respiratory Status: No respiratory distress - Abdominal Inspection: Normal Distension: No distension Tenderness: Nontender - Genitourinary Genitourinary Note: voiding - Extremities Upper extremity: Normal inspection Lower extremities: Other - trace edema - Neurological Cognition: Normal Orientation: AAOx4 - Psychological Associated symptoms: Normal affect, Normal mood - Skin Skin Temperature: Warm Skin Moisture: Dry Skin Color: Normal Objective-Diagnostic Laboratory: 05/04/18 06:33 05/04/18 06:33 Assessment and Plan(PN) - Assessment and Plan (1) Advanced maternal age (AMA) in Is this a current diagnosis for this admission?: Yes (2) Chronic hypertension affecting Is this a current diagnosis for this admission?: Yes (3) History of delivery Is this a current diagnosis for this admission?: Yes (4) premature rupture of membranes Qualifiers: PROM onset of labor timing: onset of labor within 24 hours of rupture Qualified Code(s): O42.019 - premature rupture of membranes, onset of labor within 24 hours of rupture, unspecified trimester Is this a current diagnosis for this admission?: Yes (5) S/P repeat low transverse Is this a current diagnosis for this admission?: Yes (6) Sterilization Is this a current diagnosis for this admission?: Yes (7) Type 2 diabetes mellitus affecting in third trimester, antepartum Is this a current diagnosis for this admission?: Yes - Time Spent with Patient Time with patient: Less than 15 minutes Medications reviewed and adjusted accordingly: Yes - Disposition Anticipated Discharge: Home Within: within 24 hours
[2018-05-05] MEDS: DOCUSATE SODIUM 100 MG CAPSULE PO SCH ×2 (10:55→17:07)
[2018-05-05] MEDS: PRENATAL VITAMIN W DHA CAPSULE PO SCH (10:55)
[2018-05-05] MEDS: OXYCODONE-ACETAMINOPHEN 5-325 MG TABLET PO PRN ×3 (11:37→22:11)
[2018-05-05 20:29] VITALS: BP 131/81
--- NOTE | 2018-05-05 21:07 | PDOC DISCHARGE SUMMARY ---
Final Diagnosis Discharge Date: 05/05/18 - Final Diagnosis (1) S/P repeat low transverse Is this a current diagnosis for this admission?: Yes (2) Advanced maternal age (AMA) in Is this a current diagnosis for this admission?: Yes (3) Type 2 diabetes mellitus affecting in third trimester, antepartum Is this a current diagnosis for this admission?: Yes (4) premature rupture of membranes Is this a current diagnosis for this admission?: Yes (5) Chronic hypertension affecting Is this a current diagnosis for this admission?: Yes (6) History of delivery Is this a current diagnosis for this admission?: Yes (7) Sterilization Is this a current diagnosis for this admission?: Yes Discharge Data - Discharge Medication Prescriptions: Oxycodone HCl/Acetaminophen [Percocet 5-325 mg Tablet] 2 tab PO Q4HP PRN 7 Days #28 tablet PRN Reason: For Pain Docusate Sodium [Dulcolax Stool Softener] 100 mg PO BID 30 Days #60 capsule Ibuprofen [Motrin 800 mg Tablet] 800 mg PO Q8 30 Days #90 tablet Simethicone [Mylicon 80 mg Chewable Tablet] 80 mg PO QIDP PRN #24 tab.chew PRN Reason: Home Medications: Glyburide 10 mg PO DAILY 02/28/18 Prenat 115/Iron Fum/Folic/Dss [ 19 Tablet] 1 tab PO DAILY 02/28/18 Diphenhydramine HCl [Benadryl 25 mg Capsule] 25 mg PO PRN PRN 04/11/18 Acetaminophen [Tylenol 325 mg Tablet] 650 mg PO Q4HP PRN tablet 05/05/18 Diph,Pertuss(Acell),Tet Vac/Pf [Boostrix Vaccine 0.5 ml Syringe] 0.5 ml IM .DISCHARGE PRN disp.syrin 05/05/18 Docusate Sodium [Dulcolax Stool Softener] 100 mg PO BID 30 Days #60 capsule Ibuprofen [Motrin 800 mg Tablet] 800 mg PO Q8 30 Days #90 tablet 05/05/18 Oxycodone HCl/Acetaminophen [Percocet 5-325 mg Tablet] 2 tab PO Q4HP PRN 7 Days #28 tablet 05/05/18 Vit/Dha [ Multi + Dha Capsule] 1 cap PO DAILY capsule Simethicone [Mylicon 80 mg Chewable Tablet] 80 mg PO QIDP PRN #24 tab.chew 05/05 Gestational Age: 36 Reason(s) for Admission: Onset of Labor, Ceasarean Section-Repeat, PROM, Labor, Medical Complications, Advanced Maternal Age Admission Note: admitted for Repeat c/s with BTL due to PROM at 36wks and AMA, Type II DM (not well controlled), CHTN. Uncomplicated repeat c/s. Procedures: NST, Management of Medical Complications Intrapartum Procedure(s): : Low Cervical, Transverse, Tubal Ligation Intrapartum Procedure Note: see Op Note - [place] Data Baby 1 Male at 1 minute: 5 at 5 minutes: 7 at 10 minutes: 8 Weight: 3.613 kg Home with Mother: No - transfer to [facility] Complications: Yes - transfer to [facility] - Diagnosis Test Laboratory: Temp Pulse Resp BP Pulse Ox 98.8 F 91 16 131/81 H 99 05/05/18 19:48 05/05/18 19:48 05/05/18 19:48 05/05/18 19:48 05/05/18 19:48 05/03/18 05/03/18 05/04/18 23:21 23:42 06:33 RBC 4.37 4.30 Hgb 11.3 L 11.0 L Hct 34.0 L 33.3 L Urine Opiates Screen NEGATIVE - Discharge information/Instructions Discharge Activity: Activity As Tolerated, Balance Activity w/Rest, No Lifting Over 10 Pounds, No Lifting/Push/Pulling, Pelvic Rest, No tub bath Discharge Diet: Diabetic Disposition: HOME, SELF-CARE Follow up with: [facility] in: 3, Days
== END 2018-05-05 23:10 | disposition home or self-care (01) | DRG 783 ==
LOC: EDSTATUS 23:24 → LC 23:24 → LR 23:35 → 2S 05-04 04:08
PROVIDERS: ADMIT Student in an Organized Health Care Education/Training Program; ATTEND Student in an Organized Health Care Education/Training Program
PROC: 10D00Z1 Extraction of Products of Conception, Low, Open Approach (ICD-10-PCS; principal; 2018-05-04)
PROC: 0UL70CZ Occlusion of Bilateral Fallopian Tubes with Extraluminal Device, Open Approach (ICD-10-PCS; 2018-05-04)
PROC: 3E0234Z Introduction of Serum, Toxoid and Vaccine into Muscle, Percutaneous Approach (ICD-10-PCS; 2018-05-05)
PROC: 3E0234Z Introduction of Serum, Toxoid and Vaccine into Muscle, Percutaneous Approach (ICD-10-PCS; 2018-05-05)
DX: O34.211 Maternal care for low transverse scar from previous cesarean delivery (principal); O24.12 Pre-existing type 2 diabetes mellitus, in childbirth; K83.1 Obstruction of bile duct; O10.02 Pre-existing essential hypertension complicating childbirth; O26.62 Liver and biliary tract disorders in childbirth; O69.81X0 Labor and delivery complicated by cord around neck, without compression, not applicable or unspecified; E11.9 Type 2 diabetes mellitus without complications; O42.013 Preterm premature rupture of membranes, onset of labor within 24 hours of rupture, third trimester; N85.8 Other specified noninflammatory disorders of uterus; Z3A.36 36 weeks gestation of pregnancy; Z37.0 Single live birth; Z79.84 Long term (current) use of oral hypoglycemic drugs; Z30.2 Encounter for sterilization; Z23 Encounter for immunization
CPT/HCPCS: 1961; 36415; 80053; 80307; 82239; 82962; 85025; 85027; 86592; 86850; 86900; 86901; 90471; 90686; 90707; 94799; G0008; J1170; J1885; J2210; J2250; J2405; J2590; J3010; J3490; J7120

== ENCOUNTER 2019-04-17 07:10 | Emergency (ER) | payer OTHER ==
[2019-04-17] MEDS ORDERED: KETOROLAC TROMETHAMINE INJ/PF 30 MG/1 ML SDV IV ONE (07:52)
[2019-04-17] MEDS ORDERED: ONDANSETRON HCL INJ/PF 4 MG/2 ML SDV IV ONE ×3 (07:52→11:25)
[2019-04-17] MEDS ORDERED: HYDROMORPHONE HCL INJ/PF 2 MG/ML AMPULE IV ONE (08:08)
--- NOTE | 2019-04-17 08:08 | ER Document Report ---
ED General - General Chief Complaint: Possible Kidney Stone Stated Complaint: BACK PAIN,NAUSEA Time Seen by Provider: 04/17/19 07:38 Primary Care Provider: NAYAN GRANT MD [Primary Care Provider] - Follow up as needed TRAVEL OUTSIDE OF THE [place] IN LAST 30 DAYS: No - HPI Onset: This morning Quality of pain: Sharp, Stabbing Severity: Severe Pain Level: 5 Context: 39 year old female with h/o right side renal colic is here with abrupt right sided flank pain with nausea and vomiting. No fever or chills.This sharp stabbing pain wraps around her right flank. Last menstral period about 2 weeks. Exacerbated by: Denies Relieved by: Denies Similar symptoms previously: Yes - 4 years ago right ureterolithiasis - Related Data Allergies/Adverse Reactions: cephalexin monohydrate [From Keflex] Allergy (Severe, Verified 05/04/18 00:37) analphylaxis Penicillins Allergy (Severe, Verified 05/04/18 00:37) Swelling, SOB, itching, body turns red Sulfa (Sulfonamide Antibiotics) Allergy (Mild, Verified 05/04/18 00:37) Hives Past Medical History - Social History Smoking Status: Never Smoker Chew tobacco use (# tins/day): No Frequency of alcohol use: None Drug Abuse: None Family History: Reviewed & Not Pertinent Patient has suicidal ideation: No Patient has homicidal ideation: No - Past Medical History Cardiac Medical History: Denies: Hx Coronary Artery Disease, Hx Heart Attack, Hx Hypertension Pulmonary Medical History: Reports: Hx Bronchitis, Hx Pneumonia - 2 yrs ago Denies: Hx Asthma, Hx COPD Neurological Medical History: Reports: Hx Migraine. Denies: Hx Cerebrovascular Accident, Hx Seizures Endocrine Medical History: Reports: Hx Diabetes Mellitus Type 2 Renal/ Medical History: Denies: Hx Peritoneal Dialysis GI Medical History: Musculoskeletal Medical History: Denies Hx Arthritis Infectious Medical History: Past Surgical History: Reports: Hx Cholecystectomy. Denies: Hx Pacemaker - Immunizations Immunizations up to date: Yes Hx Diphtheria, Pertussis, Tetanus Vaccination: Yes Review of Systems - Review of Systems Constitutional: No symptoms reported EENT: No symptoms reported Cardiovascular: No symptoms reported Respiratory: No symptoms reported Gastrointestinal: See HPI Genitourinary: See HPI, Flank pain, Pain Female Genitourinary: No symptoms reported Musculoskeletal: No symptoms reported Skin: No symptoms reported Hematologic/Lymphatic: No symptoms reported Neurological/Psychological: No symptoms reported Physical Exam - Vital signs Vitals: Temp Pulse Resp BP Pulse Ox 97.3 F 71 20 155/106 H 97 04/17/19 07:21 04/17/19 07:21 04/17/19 07:21 04/17/19 07:21 04/17/19 07:21 Interpretation: Normal - General General appearance: Appears well, Alert In distress: Moderate - due to pain - HEENT Head: Normocephalic, Atraumatic Eyes: Normal Pupils: PERRL - Respiratory Respiratory status: No respiratory distress Chest status: Nontender Breath sounds: Normal Chest palpation: Normal - Cardiovascular Rhythm: Regular Heart sounds: Normal auscultation Murmur: No - Abdominal Inspection: Normal Distension: No distension Bowel sounds: Normal Tenderness: Nontender Organomegaly: No organomegaly - Back Back: Normal, Tender - right flank - Extremities General upper extremity: Normal inspection, Nontender, Normal color, Normal ROM, Normal temperature General lower extremity: Normal inspection, Nontender, Normal color, Normal ROM, Normal temperature, Normal weight bearing. No: Edie's sign - Neurological Neuro grossly intact: Yes Cognition: Normal Orientation: AAOx4 [place] Coma Scale Eye Opening: Spontaneous [place] Coma Scale Verbal: Oriented [place] Coma Scale Motor: Obeys Commands [place] Coma Scale Total: 15 Speech: Normal Motor strength normal: LUE, RUE, LLE, RLE Sensory: Normal - Psychological Associated symptoms: Normal affect, Normal mood - Skin Skin Temperature: Warm Skin Moisture: Dry Skin Color: Normal Course - Re-evaluation Re-evalutation: 04/17/19 12:30 MDM 39 yo female with ureterolithiasis. 2mm distal right sided stone. She feels better here. Will have her followup. - Vital Signs Vital signs: Temp Pulse Resp BP Pulse Ox 97.3 F 71 20 155/106 H 97 04/17/19 07:21 04/17/19 07:21 04/17/19 07:21 04/17/19 07:21 04/17/19 07:21 - Laboratory Result Diagrams: 04/17/19 08:02 04/17/19 08:02 Laboratory results interpreted by me: 04/17/19 04/17/19 04/17/19 08:02 08:02 09:41 MCH 26.4 L RDW 15.2 H Seg Neutrophils % 79.4 H Carbon Dioxide 18 L Glucose 229 H Urine Protein 30 H Urine Glucose (UA) >=500 H Urine Ketones 20 H Urine Blood MODERATE H Discharge - Discharge Clinical Impression: Ureterolithiasis Condition: Good Disposition: HOME, SELF-CARE Instructions: Kidney Stone ([facility]) Additional Instructions: See your doctor or the referral doctor in followup. No work 04/17 or . Please return here for any problems or any concerns. Prescriptions: Tamsulosin HCl [Flomax 0.4 mg Cap.sr] 0.4 mg PO DAILY #14 cap.sr.24h Hydrocodone Bit/Acetaminophen [Hydrocodon-Acetaminophen 5-325] 1 each PO TID #12 tablet Ondansetron [Zofran Odt 4 mg Tablet] 1 - 2 tab PO Q4H PRN #15 tab.rapdis PRN Reason: For Nausea/Vomiting Forms: Return to Work Referrals: NAYAN GRANT MD [Primary Care Provider] - Follow up as needed LUIS NAGY MD [[facility]] - Follow up as needed
[2019-04-17 08:29] LABS: ABSOLUTE EOSINOPHILS # (AUTO) 0.1 10^3/uL (0.0-0.6); ABSOLUTE LYMPHOCYTES (AUTO) 1.3 10^3/uL (0.5-4.7); ABSOLUTE MONOCYTES (AUTO) 0.5 10^3/uL (0.1-1.4); ABSOLUTE NEUT (AUTO) 7.4 10^3/uL (1.7-8.2); BASOPHILS % (AUTO) 0.4 % (0-2); EOSINOPHILS % (AUTO) 1.6 % (0-6); HEMATOCRIT 40.5 % (36.0-47.0); HEMOGLOBIN 13.2 g/dL (12.0-15.5); LYMPHOCYTES % (AUTO) 13.5 % (13-45); MEAN CORPUSCULAR HEMOGLOBIN 26.4 pg (27.0-33.4); MEAN CORPUSCULAR HGB CONC 32.7 g/dL (32.0-36.0); MEAN CORPUSCULAR VOLUME 81 fl (80-97); MONOCYTES % (AUTO) 5.1 % (3-13); PLATELET COUNT 290 10^3/uL (150-450); RED BLOOD COUNT 5.01 10^6/uL (3.72-5.28); RED CELL DISTRIBUTION WIDTH 15.2 % (11.5-14.0); SEGMENTED NEUTROPHILS % (AUTO) 79.4 % (42-78); TOTAL CELLS COUNTED % (AUTO) 100 %; WHITE BLOOD COUNT 9.3 10^3/uL (4.0-10.5)
[2019-04-17 08:42] LABS: ALBUMIN 4.6 g/dL (3.5-5.0); ALKALINE PHOSPHATASE 82 U/L (38-126); ANION GAP 15 (5-19); ASPARTATE AMINO TRANSFERASE 21 U/L (14-36); BILIRUBIN,DIRECT 0.2 mg/dL (0.0-0.4); BILIRUBIN,TOTAL 0.4 mg/dL (0.2-1.3); BLOOD UREA NITROGEN 12 mg/dL (7-20); CALCIUM 9.7 mg/dL (8.4-10.2); CARBON DIOXIDE 18 mmol/L (22-30); CHLORIDE 106 mmol/L (98-107); GLUCOSE 229 mg/dL (75-110); POTASSIUM 4.1 mmol/L (3.6-5.0); TOTAL PROTEIN 7.3 g/dL (6.3-8.2)
--- NOTE | 2019-04-17 09:09 | RADIOLOGY REPORT (SQ) ---
EXAM DESCRIPTION: CT ABD/PELVIS NO ORAL OR IV COMPLETED DATE/TIME: 04/17/2019 8:49 am REASON FOR STUDY: right flank pain. COMPARISON: 03/15/2015 CT abdomen pelvis TECHNIQUE: CT scan of the abdomen and pelvis performed without intravenous or oral contrast. Images reviewed with lung, soft tissue, and bone windows. Reconstructed coronal and sagittal MPR images revi ewed. All images stored on PACS. All CT scanners at this facility use dose modulation, iterative reconstruction, and/or weight based d osing when appropriate to reduce radiation dose to as low as reasonably achievable (ALARA). [facility]: Dose Right [facility]: CareDose [facility]: Dose Right [facility]: Teradose 4D [facility]: Smart CloudX RADIATION DOSE: CT Rad equipment meets quality standard of care and radiation dose reduction techniq ues were employed. CTDIvol: 10.7 mGy. DLP: 611 mGy-cm.mGy. LIMITATIONS: None. FINDINGS: A 2 mm distal right ureteral calculus is present at the ureterovesical junction on axial i mage 84, and coronal image 42. This causes mild right hydronephrosis and hydroureter. No other right-sided ureteral calculi or intrarenal stones. No gross right renal masses. 2 cm right midpole renal cortical cyst. LOWER CHEST: No significant findings. No nodules or infiltrates. NON-CONTRASTED LIVER, SPLEEN, ADRENALS: Evaluation limited by lack of IV contrast. No identified sign ificant masses. PANCREAS: No masses. No peripancreatic inflammatory changes. GALLBLADDER: Surgically absent RIGHT KIDNEY AND URETER: As above LEFT KIDNEY AND URETER: No suspicious masses. Assessment limited by lack of IV contrast. No signifi cant calcifications. No hydronephrosis or hydroureter. AORTA AND RETROPERITONEUM: No aneurysm. No retroperitoneal masses or adenopathy. BOWEL AND PERITONEAL CAVITY: No obvious masses or inflammatory changes. No free fluid. Scattered col onic diverticuli without CT signs of acute diverticulitis APPENDIX: Normal in size, punctate have been pectoralis are present within the appendix on coronal im age 39 and 36. PELVIS, BLADDER, AND ABDOMINAL WALL:No abnormal masses. No free fluid. Bladder normal. Normal size f emale pelvic organs. Clips post tubal ligation. BONES: No significant findings. OTHER: No other significant finding. IMPRESSION: 2 mm right distal ureteral calculus at the ureterovesical junction, causing mild right h ydronephrosis and hydroureter. COMMENT: Quality ID # [id number]: Final reports with documentation of one or more dose reduction techniques (e.g., Automated exposure control, adjustment of the mA and/or kV according to patient size, use of iterative reconstruction technique) TECHNICAL DOCUMENTATION: JOB ID: [id number] [employer]- All Rights Reserved Reading location - IP/workstation name: [email or web address]
[2019-04-17 10:10] LABS: APPEARANCE,URINE SLIGHTLY-CLOUDY; BILIRUBIN,URINE NEGATIVE (NEGATIVE); COLOR,URINE YELLOW; GLUCOSE, URINE >=500 mg/dL (NEGATIVE); KETONES,URINE 20 mg/dL (NEGATIVE); LEUKOCYTE ESTERASE,URINE NEGATIVE (NEGATIVE); NITRITE,URINE NEGATIVE (NEGATIVE); PROTEIN,URINE 30 mg/dL (NEGATIVE); URINE SPECIFIC GRAVITY 1.036; UROBILINOGEN,URINE NEGATIVE mg/dL (<2.0)
[2019-04-17] MEDS ORDERED: MORPHINE SULFATE 10 MG/ML INJ IV ONE (11:25)
[2019-04-17 12:51] VITALS: BP 138/77
== END 2019-04-17 12:51 | disposition home or self-care (01) ==
LOC: ER 07:10
DX: N13.2 Hydronephrosis with renal and ureteral calculous obstruction (principal); R10.9 Unspecified abdominal pain; R11.2 Nausea with vomiting, unspecified; E11.9 Type 2 diabetes mellitus without complications; Z90.49 Acquired absence of other specified parts of digestive tract; Z88.1 Allergy status to other antibiotic agents; Z88.0 Allergy status to penicillin; Z88.2 Allergy status to sulfonamides
CPT/HCPCS: 96376; 99284; 96374; 96375; 36415; 85025; 81025; 80053; 81001; 74176; J1885; J2270; J1170; J2405